=== PATIENT | male | born 1965 | race Caucasian/White ===

== ENCOUNTER → 2023-02-09 | Outpatient (REF) | payer OTHER | LOC: M SFHCPLAZ 12:09 | PROVIDERS: ATTEND Family Medicine | DX: Z53.9 Procedure and treatment not carried out, unspecified reason (principal) ==

== ENCOUNTER → 2023-05-25 | Outpatient (REF) | payer OTHER, MEDICAID | LOC: M SFHCPLAZ 08:28 | PROVIDERS: ATTEND Family Medicine | DX: F32.A Depression, unspecified (principal); Z53.9 Procedure and treatment not carried out, unspecified reason ==